=== PATIENT | female | born 1975 | race Caucasian/White ===

== ENCOUNTER 2019-01-21 14:09 | Outpatient (CLI) ==
--- NOTE | 2019-01-23 07:51 | MRI ---
EXAM: MRI of the thoracic spine without contrast HISTORY: Thoracic pain TECHNIQUE: Multiplanar imaging of the thoracic spine was performed using T1, T2, inversion recovery sequences. Comparison none. FINDINGS: There is no bone marrow edema. The paraspinal soft tissues are normal. The thoracic spin al cord demonstrates normal signal on T2W images. The spinal canal appears to be normal caliber. Segmental analysis: T1-T2: The central canal and neural foramina appear patent. T2-T3: The central canal and neural foramina appear patent. T3-T4: The central canal and neural foramina appear patent. T4-T5: The central canal and neural foramina appear patent. T5-T6: The central canal and neural foramina appear patent. T6-T7: The central canal and neural foramina appear patent. T7-T8: The central canal and neural foramina appear patent. T8-T9: The central canal and neural foramina appear patent. T9-T10: The central canal and neural foramina appear patent. There is mild facet joint arthropathy at this level. T9-T10: The central canal and neural foramina appear adequately patent. There is mild facet joint d egenerative change. T10-T11: The central canal and neural foramina appear patent. T11-T12: There is mild disc bulge resulting in mild narrowing of the central canal. The neural fora juju appear adequately patent. IMPRESSION: No evidence of acute compression fracture. There is no central canal stenosis. Mild facet arthropathy seen within the lower thoracic spine. Mild degenerative disc disease and disc bulge seen at the T11-T12 level.
== END 2019-01-21 14:10 | disposition home or self-care (01) ==
LOC: RAD 14:09
PROVIDERS: ATTEND Physician Assistant
DX: M54.6 Pain in thoracic spine (principal)